=== PATIENT | male | born 1940 | race Caucasian/White ===

== ENCOUNTER 2018-12-01 07:50 | Day surgery (SDC) | payer MEDICARE, OTHER ==
[2018-11-30 09:49] LABS: HEMATOCRIT 38.3 % (42.0-54.0); HEMOGLOBIN 12.3 g/dL (13.5-17.5); MCH 30.2 pg (26.0-34.0); MCHC 32.1 g/dL (31.0-37.0); MCV 94.1 fL (80.0-100.0); MEAN PLATELET VOLUME 10.3 fL (7.4-10.4); RBC 4.07 10x6/uL (4.20-6.10); RDW 13.8 % (11.5-14.5); WBC 6.5 10x3/uL (4.8-10.8)
[2018-11-30 10:00] LABS: ANION GAP 9.3 mmol/L (8-16); CALCIUM 9.1 mg/dL (8.5-10.1); CARBON DIOXIDE 31.7 mmol/L (21.0-32.0); CREATININE - SERUM 1.3 mg/dL (0.6-1.3)
[~2018-12-01] VITALS: Ht 172.7 cm; Wt 74.8 kg
[~2018-12-01 07:50] MED LIST: COREG6.25 MG PO; CRESTOR20 MG PO; FLOMAX0.4 MG PO; FUROSEMIDE20 MG PO; MOBIC7.5 MG PO; [UNRECOGNIZED DRUG - OTHER] PO
[2018-12-01] MEDS ORDERED: AMOXICILLIN500 M1 PO (09:04)
[2018-12-01 09:05] VITALS: BP 179/81; Ht 172.7 cm; Wt 74.8 kg
[2018-12-01] MEDS ORDERED: HYDROCODON-ACE1 EA10 PO (14:05)
--- NOTE | 2018-12-01 20:11 | NUR ---
1525 VOIDED 1645 IV REMOVED 1725 PT DISCHARGED HOME WITH INSTRUCTIONS
--- NOTE | 2018-12-02 07:41 | OP ---
PATIENT NAME: MAYDA PINTO MEDICAL RECORD: [id number] :41 LOCATION:[facility] ADMISSION DATE: SURGEON: NAVDEEP VARGAS DO DATE OF OPERATION: 12/01/2018 PROCEDURE PERFORMED: Right shoulder arthroscopy with arthroscopic rotator cuff repair, labral debridement, and biceps tenodesis. PREOPERATIVE DIAGNOSES: Right shoulder labral tear, SLAP tear, and partial thickness rotator cuff tear of the supraspinatus. POSTOPERATIVE DIAGNOSIS: Right shoulder labral tear, SLAP tear, and partial thickness rotator cuff tear of the supraspinatus. INDICATIONS: Mr. Pinto is a 78-year-old male who presented to my office with an MRI. I have been trying all manner of nonoperative treatment for his rotator cuff. He had an MRI, which showed a partial-thickness supraspinatus tear at the insertion of the greater tuberosity. It was not with contrast, it did not pickers material handlers on the SLAP tear; but I had informed him I am going to look at the tear, and if it was more than 50% torn as indicated on the MRI, I would repair it. He was okay with that and wanted to have it done. He was informed of the risks including retear, damage to nerves and vessels, need for further surgery. I told him I would cut his biceps and tack it back down as well. He was okay with that as to. He had a previous shoulder scope when they did a subacromial decompression, distal clavicle excision and he did not really have any problems with that. The patient signed the consent. SURGEON: Navdeep Vargas DO DESCRIPTION OF PROCEDURE: The patient received a block by anesthesia in the preoperative area and taken to the operative suite, given 900 mg of clindamycin preoperatively, laid in the left lateral decubitus position with the right shoulder up. The shoulder was then prepped and draped in sterile fashion. A timeout was performed, everyone was in agreement as to the correct side, site, patient and procedure. We then insufflated the joint with 60 mL of normal saline and then 11 blade scalpel was used to establish posterior portal. The shoulder joint was then entered with a trocar and the camera brought in. The labral tear was noted. An anterior portal was then established with an 18-gauge spinal needle and 11-blade scalpel. Burner was brought in and tenotomy was done of the bicep tendon. The subscapularis tendon was inspected and seen to be in good repair. The rest of the joint looked good as well. Not much chondromalacia in the shoulder joint and nothing in the inferior joint; however, the supraspinatus was torn more than 50% on the articular side. There was a tear approximately 4 mm in length and it was greater than 50% torn. The shaver was brought in to debride and see how extensive it was and it did seem to be more than 50%. The greater tuberosity was then decorticated through the scope on the articular side and I switched scope into the subacromial space. There was no full thickness on the bursal side; however, it was very thin. The scope was then entered back into the articular side and a spinal needle was used to ade it. A punch was then used through the lateral portal, which had been established previous with an 18-gauge spinal needle and 11-blade scalpel. A punch was brought in and punched a hole at the articular margin and then a SwiveLock with FiberTape was brought in and entered into the humerus at the articular margin that had been previously decorticated and then the scope was switched to the subacromial space. Scorpion was brought in and bite through the OPERATIVE REPORT [id number] MADYA PINTO N supraspinatus anteriorly and posteriorly and then a punch was brought in for a lateral anchor into the humerus, which pulled the rotator cuff over nicely and then this was cinched down. The excess suture was then cut and suction was turned on and water was turned off. Excess fluid was removed from the shoulder. After looking back at the articular side, seen a nice repair of the supraspinatus down to the greater tuberosity. The biceps tenodesis was then dressed and an incision was made on the anterior humerus. Dissection was made down to the long head of the biceps tendon, it was pulled out through the incision, whipstitched and then a unicortical button was placed through the humerus after being drilled and the bicep tendon was cinched down to that and tied and then a free needle through the bicep tendon and this was tied down as well and the excess suture and tendon were cut. This was then irrigated and closed with 2-0 Vicryl in an interrupted fashion, 4-0 Monocryl ran on the skin, and a 4-0 Monocryl in inverted interrupted fashion on the portal sites with Dermabond on top of that and then a Telfa and Tegaderm on that. He was then awakened and taken to recovery in stable condition. BLOOD LOSS: Minimal. COMPLICATIONS: None. TRANSINT:[id number] Voice Confirmation ID: [id number] DOCUMENT ID: [id number] NAVDEEP VARGAS DO at 0741 CC: [id number] DICTATION DATE: 12/01/18 1401 STEAMBOAT CAPTAIN: 12/01/18 1518 [facility] 12/01/18 [id number] [place] [address]
== END 2018-12-01 17:25 | disposition home or self-care (01) ==
LOC: D.OPS 07:50 → D.PAN 13:20 → D.OPS 13:20 → D.PAN 12-04 16:15 → D.OPS 12-04 16:15
PROVIDERS: Anesthesiology; ATTEND Orthopaedic Surgery
DX: S43.431A Superior glenoid labrum lesion of right shoulder, initial encounter (principal); X58.XXXA Exposure to other specified factors, initial encounter; M75.111 Incomplete rotator cuff tear or rupture of right shoulder, not specified as traumatic; Z01.812 Encounter for preprocedural laboratory examination

== ENCOUNTER → 2019-02-26 09:24 | Outpatient (CLI) | payer MEDICARE, OTHER ==
[2018-12-01 09:05] VITALS: BMI 25.1
[~2019-02-26 09:24] MED LIST changes: +AMOXICILLIN500 M1 PO; +HYDROCODON-ACE1 EA10 PO
--- NOTE | 2019-02-26 11:29 | NUR ---
TIME OUT FOR RT SHOULDER ARTHROGRAM WAS AT 11AM W DR GOMES
== END | disposition home or self-care (01) ==
LOC: D.RAD 09:24
PROVIDERS: ATTEND Orthopaedic Surgery
DX: M75.121 Complete rotator cuff tear or rupture of right shoulder, not specified as traumatic (principal)